=== PATIENT | female | born 1950 | race Caucasian/White ===

== ENCOUNTER 2016-05-11 19:05 | Emergency (ER) | payer MEDICARE, BC ==
[2016-05-11] MEDS ORDERED: HYDROcodone/Acetaminophen 10/325 mg Tablet ONE (20:05)
[2016-05-11] MEDS ORDERED: Adacel (T-DAP) 0.5 ML VIAL ONE (20:05)
[2016-05-11] MEDS ORDERED: Ondansetron ODT 4 MG TAB ONE (20:54)
== END 2016-05-11 21:10 | disposition home or self-care (01) ==
LOC: NAV ERS 19:05
DX: S61.310A Laceration without foreign body of right index finger with damage to nail, initial encounter (principal); X58.XXXA Exposure to other specified factors, initial encounter
CPT/HCPCS: 90471; 90715; Q0162